=== PATIENT | female | born 1975 | race Caucasian/White ===

== ENCOUNTER 2016-08-09 11:45 | Emergency (ER) | payer OTHER ==
[2016-08-09 15:15] LABS: BASOPHIL % 0.4 % (0-2); CALCIUM 8.9 mg/dL (8.5-10.1); CARBON DIOXIDE 28.3 mmol/L (21-32); CHLORIDE SERUM 103 mmol/L (98-107); CREATININE SERUM 0.7 mg/dL (0.6-1.0); GFR1 > 60 mL/min; GLUCOSE SERUM 96 mg/dL (74-106); PLATELET COUNT 295 x10^3mcL (130-400); POTASSIUM SERUM 3.9 mmol/L (3.5-5.1); RED CELL DISTRIBUTION WIDTH 13.4 % (11.5-14.5); SODIUM SERUM 136 mmol/L (136-145)
[2016-08-09 15:20] LABS: ALBUMIN 3.6 g/dL (3.4-5.0); ALKALINE PHOSPHATASE 84 U/L (46-116); ALT/SGPT 17 U/L (14-59); AMYLASE 34 U/L (25-115); AST/SGOT 12 U/L (15-37); BILIRUBIN TOTAL 0.3 mg/dL (0.20-1.00); LIPASE 97 IU/L (73-393); TOTAL PROTEIN, SERUM 7.2 g/dL (6.4-8.2)
[2016-08-09 16:13] VITALS: BP 124/76
== END 2016-08-09 17:03 | disposition home or self-care (01) ==
LOC: ED 11:45
PROVIDERS: Emergency Medicine
DX: M54.9 Dorsalgia, unspecified (principal); Z97.5 Presence of (intrauterine) contraceptive device
CPT/HCPCS: 36415; 83880; J1885

== ENCOUNTER 2018-05-14 05:33 | Emergency (ER) | payer OTHER ==
[~2018-05-14] VITALS: Ht 157.5 cm; Wt 89.1 kg
[2018-05-14 05:38] VITALS: Ht 157.5 cm; Wt 89.1 kg
[2018-05-14 06:25] VITALS: BP 133/95
== END 2018-05-14 06:23 | disposition home or self-care (01) ==
LOC: ED 05:33
DX: J03.90 Acute tonsillitis, unspecified (principal); Z91.013 Allergy to seafood; Z98.890 Other specified postprocedural states
CPT/HCPCS: J0696; J7512

== ENCOUNTER 2019-02-13 03:55 | Emergency (ER) | payer OTHER ==
[~2019-02-13] VITALS: Ht 157.5 cm; Wt 90.3 kg
[2019-02-13 04:04] VITALS: Ht 157.5 cm; Wt 90.3 kg
[2019-02-13 07:25] VITALS: BP 137/84
== END 2019-02-13 07:20 | disposition home or self-care (01) ==
LOC: ED 03:55
DX: J02.9 Acute pharyngitis, unspecified (principal); Z91.013 Allergy to seafood; Z98.890 Other specified postprocedural states
CPT/HCPCS: 87804; J1100; J1885

== ENCOUNTER 2019-11-06 12:36 | Emergency (ER) | payer OTHER, SELFPAY ==
[~2019-11-06] VITALS: Ht 157.5 cm; Wt 87.5 kg
[2019-11-06 12:38] VITALS: BP 114/77; Ht 157.5 cm; Wt 87.5 kg
== END 2019-11-06 13:33 | disposition home or self-care (01) ==
LOC: ED 12:36
DX: U07.1 COVID-19 (principal); B34.9 Viral infection, unspecified; Z98.890 Other specified postprocedural states; Z91.013 Allergy to seafood
CPT/HCPCS: U0003-CS